=== PATIENT | female | born 1995 | race Two or more races ===

== ENCOUNTER 2016-11-01 16:09 | Emergency (ER) | payer OTHER ==
--- NOTE | 2016-11-01 17:30 | ED Physician Documentation ---
PD HPI URI - Stated complaint Stated Complaint: CHEST PX,COUGH,RASH, - Chief complaint Chief Complaint: General - History obtained from History obtained from: Patient - History of Present Illness Timing - onset: How many weeks ago (1-2) Timing duration: Weeks Timing details: Gradual onset, Still present (worse past few days with chest pain too) Associated symptoms: Fever, Chills, Productive cough, Chest pain, Dyspnea. No: Hemoptysis, NVD Contributing factors: No: Travel, COPD / asthma Improves by: Rest Worsened by: Breathing Similar symptoms before: Has not had sx before Recently seen: Not recently seen Review of Systems Constitutional: reports: Fever, Chills, Myalgias Nose: reports: Congestion Respiratory: reports: Dyspnea, Cough, Wheezing GI: denies: Vomiting, Diarrhea Skin: denies: Rash PD PAST MEDICAL HISTORY - Past Medical History Past Medical History: No Cardiovascular: None Respiratory: None - Present Medications Home Medications: Ambulatory Orders Medication Instructions Recorded Confirmed Albuterol Sulfate [Proair Hfa 2 puffs IH QID #1 hfa.aer.ad 11/01/16 Inhaler] Azithromycin [Zithromax] 250 mg PO DAILY #6 tablet 11/01/16 Dexamethasone [Decadron] 4 mg PO DAILY #5 tablet 11/01/16 Hydrocodone/Acetaminophen [Nash 1 each PO Q6H PRN #20 tablet 11/01/16 5-325 Tablet] - Allergies Allergies/Adverse Reactions: Allergies Allergy/AdvReac Type Severity Reaction Status Date / Time No Known Drug Allergies Allergy Verified 11/01/16 16:16 PD ED PE NORMAL - Vitals Vital signs reviewed: Yes - General General: Alert and oriented X 3, No acute distress, Well developed/nourished - HEENT HEENT: Ears normal, Pharynx benign - Neck Neck: Supple, no meningeal sign, No adenopathy - Cardiac Cardiac: RRR, No murmur - Respiratory Respiratory: No: Clear bilaterally (scattered wheezes) - Derm Derm: Normal color, Warm and dry - Extremities Extremities: No edema, No calf tenderness / cord Results - Vitals Vitals: Vital Signs - 24 hr 11/01/16 11/01/16 16:13 18:29 Temperature 36.6 C 37.4 C Heart Rate 97 80 Respiratory 14 16 Rate Blood Pressure 121/72 124/78 O2 Saturation 95 99 Oxygen O2 Source Room air - Rads (name of study) chest Radiology: Prelim report reviewed, EMP read contemporaneously (normal) PD MEDICAL DECISION MAKING - ED course Complexity details: considered differential (has been sick awhile and worse cough with sputum, consider bacterial transformation.), d/w patient Departure - Departure Disposition: 01 Home, Self Care Clinical Impression: Upper respiratory infection Qualifiers: URI type: unspecified URI Qualified Code(s): J06.9 - Acute upper respiratory infection, unspecified Chest pain Qualifiers: Chest pain type: chest pain on breathing Qualified Code(s): R07.1 - Chest pain on breathing Condition: Stable Record reviewed to determine appropriate education?: Yes Instructions: ED Chest Pain Pleurisy, ED Upper Resp Infec Abx Tx Follow-Up: DAHLIA YADAV [Primary Care Provider] - Prescriptions: Dexamethasone [Decadron] 4 mg PO DAILY #5 tablet Hydrocodone/Acetaminophen [Nash 5-325 Tablet] 1 each PO Q6H PRN #20 tablet PRN Reason: Pain Albuterol Sulfate [Proair Hfa Inhaler] 2 puffs IH QID #1 hfa.aer.ad Azithromycin [Zithromax] 250 mg PO DAILY #6 tablet Comments: Your chest xray looks okay, so no pneumonia, collapsed lung, etc. Sounds like bronchitis and some inflammation of the chestwall/lung surface. Zithromax and Decadron daily for 5 days. Use Albuterol inhaler 2 puffs 4 times daily for 7-10 days. Add hydrocodone as needed for pains. Recheck if not improved over the next 3-5 days. Forms: Activity restrictions Discharge Date/Time: 11/01/16 18:58
[2016-11-01] MEDS ORDERED: IBUPROFEN 600 MG TABLET PO ONE (17:51)
[2016-11-01] MEDS ORDERED: ACETAMINOPHEN 325 MG TABLET PO ONE (17:51)
[2016-11-01] MEDS: ACETAMINOPHEN 325 MG TABLET PO STA (18:02)
[2016-11-01] MEDS: IBUPROFEN 600 MG TABLET PO STA (18:03)
[2016-11-01 18:30] VITALS: BP 124/78
--- NOTE | 2016-11-01 18:30 | XRAY Preliminary Report ---
Exam: XR Chest 2 View PA/LAT IMPRESSION: 1. No consolidation. 2. No pneumothorax or effusion. [facility] SITE ID: [id number]
--- NOTE | 2016-11-01 19:11 | XRAY Report ---
EXAM: CHEST RADIOGRAPHY EXAM DATE: 11/01/2016 06:10 PM. CLINICAL HISTORY: Cough and left chest pain. COMPARISON: None. TECHNIQUE: 2 views. FINDINGS: Lungs/Pleura: No focal opacities evident. No pleural effusion. No pneumothorax. Normal volumes. Mediastinum: Heart and mediastinal contours are unremarkable. Other: None. IMPRESSION: 1. No consolidation. 2. No pneumothorax or effusion. [facility] Referring Provider Line: [phone] SITE ID: [id number]
== END 2016-11-01 18:58 | disposition home or self-care (01) ==
LOC: ED 16:09
DX: J06.9 Acute upper respiratory infection, unspecified (principal); R07.9 Chest pain, unspecified
CPT/HCPCS: 71020; 99282; 99283

== ENCOUNTER 2016-12-14 19:06 | Emergency (ER) | payer OTHER ==
--- NOTE | 2016-12-14 19:47 | ED Physician Documentation ---
History of Present Illness - Stated complaint Stated Complaint: DIZZINESS,FATIGUE - Chief complaint Chief Complaint: General - History obtained from History obtained from: Patient - History of Present Illness Timing: Other (21-year-old who for the last many months has had postprandial bloating and sometimes vomiting associated with fatigue despite good sleep. 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 She denies weight loss, changes in bowel movements, possibility of (she is on Depo-Provera).) Review of Systems Constitutional: reports: Fatigue. denies: Fever, Chills, Myalgias, Weight Loss , Sweats Eyes: denies: Loss of vision, Decreased vision Nose: denies: Rhinorrhea / runny nose, Congestion Cardiac: denies: Chest pain / pressure, Palpitations Respiratory: denies: Dyspnea, Cough PD PAST MEDICAL HISTORY - Past Medical History Past Medical History: No Cardiovascular: None Respiratory: None - Past Surgical History Past Surgical History: No - Present Medications Home Medications: Ambulatory Orders Medication Instructions Recorded Confirmed Omeprazole [PriLOSEC] 20 mg PO DAILY #14 capsule 12/14/16 - Allergies Allergies/Adverse Reactions: Allergies Allergy/AdvReac Type Severity Reaction Status Date / Time No Known Drug Allergies Allergy Verified 12/14/16 19:16 - Social History Does the pt smoke?: Yes Smoking Status: Current some day smoker Does the pt drink ETOH?: No Does the pt have substance abuse?: No - Immunizations Immunizations are current?: Yes - POLST Patient has POLST: No PD ED PE NORMAL - Vitals Vital signs reviewed: Yes - General General: Alert and oriented X 3, No acute distress - HEENT HEENT: PERRL, EOMI - Neck Neck: Supple, no meningeal sign, No bony TTP - Cardiac Cardiac: RRR, No murmur - Respiratory Respiratory: No respiratory distress, Clear bilaterally - Abdomen Abdomen: Normal bowel sounds, Soft, Non tender - Back Back: No CVA TTP, No spinal TTP - Extremities Extremities: No edema, No calf tenderness / cord - Neuro Neuro: Alert and oriented X 3, Normal speech - Psych Psych: Normal mood, Normal affect Results - Vitals Vitals: Vital Signs - 24 hr 12/14/16 19:10 Temperature 36.4 C L Heart Rate 92 Respiratory 16 Rate Blood Pressure 142/81 H O2 Saturation 98 Oxygen O2 Source Room air - Labs Labs: Laboratory Tests 12/14/16 12/14/16 12/14/16 19:56 19:56 19:56 WBC 6.5 RBC 4.36 Hgb 14.1 Hct 42.7 MCV 97.9 MCH 32.3 H MCHC 33.0 RDW 13.5 Plt Count 241 MPV 9.3 Neut # 3.6 Lymph # 2.3 Hendricks # 0.5 Eos # 0.0 Baso # 0.0 Absolute Nucleated RBC 0.00 Nucleated RBCs 0.0 Sodium 138 Potassium 4.1 Chloride 103 Carbon Dioxide 27 Anion Gap 8.0 BUN 11 Creatinine 0.6 Estimated GFR (MDRD) 126 Glucose 102 H Calcium 9.5 Total Bilirubin 0.4 AST 43 H ALT 29 Alkaline Phosphatase 82 Total Protein 8.2 Albumin 4.5 Globulin 3.7 Albumin/Globulin Ratio 1.2 Lipase 32 Urine Color Urine Clarity Urine pH Ur Specific [place] Urine Protein Urine Glucose (UA) Urine Ketones Urine Occult Blood Urine Nitrite Urine Bilirubin Urine Urobilinogen Ur Leukocyte Esterase Urine RBC Urine WBC Ur Squamous Epith Cells Urine Bacteria Urine Mucus Ur Microscopic Review Urine Culture Comments Urine HCG, Qual H. pylori IgG Antibody Negative 12/14/16 12/14/16 20:31 20:31 WBC RBC Hgb Hct MCV MCH MCHC RDW Plt Count MPV Neut # Lymph # Hendricks # Eos # Baso # Absolute Nucleated RBC Nucleated RBCs Sodium Potassium Chloride Carbon Dioxide Anion Gap BUN Creatinine Estimated GFR (MDRD) Glucose Calcium Total Bilirubin AST ALT Alkaline Phosphatase Total Protein Albumin Globulin Albumin/Globulin Ratio Lipase Urine Color YELLOW Urine Clarity CLEAR Urine pH 6.5 Ur Specific [place] 1.015 1.015 Urine Protein NEGATIVE Urine Glucose (UA) NEGATIVE Urine Ketones NEGATIVE Urine Occult Blood NEGATIVE Urine Nitrite NEGATIVE Urine Bilirubin NEGATIVE Urine Urobilinogen 0.2 (NORMAL) Ur Leukocyte Esterase SMALL H Urine RBC 0-5 Urine WBC 4-5 Ur Squamous Epith Cells FEW Squamous Urine Bacteria Few Urine Mucus Few Strands Ur Microscopic Review INDICATED Urine Culture Comments INDICATED Urine HCG, Qual NEGATIVE H. pylori IgG Antibody PD MEDICAL DECISION MAKING - ED course ED course: She presents with long-standing fatigue and abdominal bloating after eating. She has a normal examination, she is not losing weight. We will trial of PPI, she is to follow up with her physician. Departure - Departure Disposition: 01 Home, Self Care Clinical Impression: Postprandial abdominal bloating Fatigue Qualifiers: Fatigue type: unspecified Qualified Code(s): R53.83 - Other fatigue Condition: Good Record reviewed to determine appropriate education?: Yes Instructions: ED Abdominal Pain Unkn Cause Prescriptions: Omeprazole [PriLOSEC] 20 mg PO DAILY #14 capsule Comments: Call your doctor to arrange a follow up appointment. Make the next available appointment. In the interim return anytime if worse or if new symptoms develop. Your blood pressure was elevated today on check in to the emergency department. This does not mean that you have hypertension, it is a common phenomenon to check into the emergency department and have elevated blood pressure. I recommend that you see your primary care physician within the week to have it rechecked when you're feeling better.
[2016-12-14 20:35] LABS: BASOPHILS % (AUTO) 0.7 %; EOSINOPHILS % (AUTO) 0.7 %; HCT - HEMATOCRIT 42.7 % (37.0-47.0); HGB - HEMOGLOBIN 14.1 g/dL (12.0-16.0); LYMPHOCYTES # (AUTO) 2.3 10^3/uL (1.5-3.5); LYMPHOCYTES % (AUTO) 35.3 %; MEAN CORPUSCULAR HEMOGLOBIN 32.3 pg (27.0-31.0); MEAN CORPUSCULAR VOLUME 97.9 fL (81.0-99.0); MEAN PLATELET VOLUME 9.3 fL (7.9-10.8); MONOCYTES # (AUTO) 0.5 10^3/uL (0.0-1.0); MONOCYTES % (AUTO) 7.1 %; NEUTROPHILS # (AUTO) 3.6 10^3/uL (1.5-6.6); NEUTROPHILS % (AUTO) 56.2 %; RED BLOOD COUNT 4.36 10^6/uL (4.20-5.40); RED CELL DISTRIBUTION WIDTH 13.5 % (12.0-15.0); UNCORRECTED WHITE BLOOD COUNT 6.5 x10^3/uL; WHITE BLOOD COUNT 6.5 x10^3/uL (4.8-10.8)
[2016-12-14 20:48] LABS: ALBUMIN/GLOBULIN RATIO 1.2 (1.0-2.2); BILIRUBIN,TOTAL 0.4 mg/dL (0.2-1.0); CALCIUM 9.5 mg/dL (8.5-10.3); CREATININE 0.6 mg/dL (0.4-1.0); POTASSIUM 4.1 mmol/L (3.5-5.0); TOTAL PROTEIN 8.2 g/dL (6.7-8.2)
[2016-12-14 20:51] LABS: BILIRUBIN,URINE NEGATIVE (NEGATIVE); PH,URINE 6.5 PH (5.0-7.5)
[2016-12-14 20:59] LABS: UA w/ MICROSCOPIC CHARGE YES
[2016-12-14 21:00] LABS: HCG UR QUAL NEGATIVE; UR CULTURE IF IND INDICATED
[2016-12-14 21:17] LABS: H. PYLORI IGG ANTIBODY Negative (Negative); HPYLORI NEG QC Negative (Negative); HPYLORI POS QC POSITIVE (Positive)
[2016-12-14 21:26] VITALS: BP 120/76
== END 2016-12-14 21:35 | disposition home or self-care (01) ==
LOC: ED 19:06
DX: R14.0 Abdominal distension (gaseous) (principal); R53.83 Other fatigue; R03.0 Elevated blood-pressure reading, without diagnosis of hypertension; F17.200 Nicotine dependence, unspecified, uncomplicated
CPT/HCPCS: 80053; 81001; 81003; 81025; 83690; 85025; 87077; 87086; 87339; 99283

== ENCOUNTER 2017-01-08 12:28 | Emergency (ER) | payer OTHER ==
[2017-01-08 12:36] VITALS: BP 138/78
--- NOTE | 2017-01-08 12:46 | ED Physician Documentation ---
PD HPI SKIN - Stated complaint Stated Complaint: BUMPS - Chief complaint Chief Complaint: Wound - History obtained from History obtained from: Patient - History of Present Illness Timing - onset: Other (For the last 5 months this 21-year-old woman who is sexually active with a single partner has had non-painful nonmigratory lumps in her groin. She saw her physician, she says STD testing was done and negative. Some of them were treated with liquid nitrogen without success. She is here today hoping for potentially a skin biopsy, there is no acute complaint.) Review of Systems Constitutional: denies: Fever, Chills GI: denies: Abdominal Pain, Vomiting, Diarrhea : denies: Now EGA PD PAST MEDICAL HISTORY - Past Medical History Past Medical History: Yes Cardiovascular: None Respiratory: None Neuro: Headache/migraine - Past Surgical History Past Surgical History: Yes - Present Medications Home Medications: Ambulatory Orders Medication Instructions Recorded Confirmed Omeprazole [PriLOSEC] 20 mg PO DAILY #14 capsule 12/14/16 - Allergies Allergies/Adverse Reactions: Allergies Allergy/AdvReac Type Severity Reaction Status Date / Time No Known Drug Allergies Allergy Verified 12/14/16 19:16 - Social History Does the pt smoke?: Yes Smoking Status: Current some day smoker Does the pt drink ETOH?: Yes Does the pt have substance abuse?: No - Immunizations Immunizations are current?: Yes - POLST Patient has POLST: No PD ED PE NORMAL - Vitals Vital signs reviewed: Yes - General General: Alert and oriented X 3, No acute distress - Abdomen Abdomen: Soft, Non tender - Female Female : Other (Some lesions on the skin c/w molluscum) - Neuro Neuro: Alert and oriented X 3, Normal speech - Psych Psych: Normal mood, Normal affect Results - Vitals Vitals: Vital Signs - 24 hr 01/08/17 12:35 Temperature 37.2 C Heart Rate 92 Respiratory 18 Rate Blood Pressure 138/78 H O2 Saturation 98 Oxygen O2 Source Room air PD MEDICAL DECISION MAKING - ED course ED course: Lesions are very consistent with molluscum contagiosum with a central core that is expressible. The benign nature of this diagnosis was discussed with her. She requested herpes testing, discussed that she would need to follow up with her physician for results as they are not quick to results. Departure - Departure Disposition: 01 Home, Self Care Clinical Impression: Molluscum contagiosum Condition: Good Record reviewed to determine appropriate education?: Yes Instructions: ED Molluscum Contagiosum Comments: Followup with your physician in about a week to get results of herpes testing, Your blood pressure was elevated today on check in to the emergency department. This does not mean that you have hypertension, it is a common phenomenon to check into the emergency department and have elevated blood pressure. I recommend that you see your primary care physician within the week to have it rechecked when you're feeling better.
[2017-01-12 16:08] LABS: HSV 1/2 IGM CONFIRMATORY IFA NEGATIVE (()); HSV 1/2 IGM INDEX 1.25 INDEX (()); HSV 2 IGG INDEX <0.90 INDEX (())
== END 2017-01-08 13:28 | disposition home or self-care (01) ==
LOC: ED 12:28
DX: B08.1 Molluscum contagiosum (principal); R03.0 Elevated blood-pressure reading, without diagnosis of hypertension; F17.200 Nicotine dependence, unspecified, uncomplicated
CPT/HCPCS: 86694; 86695; 86696; 99283

== ENCOUNTER 2018-01-04 21:36 | Emergency (ER) | payer OTHER ==
--- NOTE | 2018-01-04 21:48 | ED Physician Documentation ---
PD HPI HEADACHE - Stated complaint Stated Complaint: LIGHTHEADED - Chief complaint Chief Complaint: General - History obtained from History obtained from: Patient, Family - History of Present Illness Timing - onset: Today Timing - details: Gradual onset, Still present Associated symptoms: No: Nausea, Vomiting, Syncope Contributing factors: Possible carbon monoxide Similar symptoms before: Has not had sx before Recently seen: Not recently seen - Additional information Additional information: Patient is a 22 year old female with no significant past medical history who is presenting to the emergency department for headache and lightheadedness. According to patient and family it started today. Patient stated that the CO monitor was reading red (vs. green). Patient had been exposed for about 4 hours. Patient's had been in the house for 5 hours and was asymptomatic. Review of Systems Constitutional: denies: Fever, Chills Eyes: denies: Loss of vision, Decreased vision, Photophobia Cardiac: denies: Chest pain / pressure Respiratory: denies: Dyspnea GI: denies: Nausea, Vomiting : denies: Dysuria, Frequency Skin: denies: Rash, Lesions Musculoskeletal: denies: Neck pain Neurologic: reports: Headache. denies: Generalized weakness, Focal weakness, Numbness, Syncope, Seizure, Altered mental status, LOC Immunocompromised: denies: Immunocompromised PD PAST MEDICAL HISTORY - Past Medical History Cardiovascular: None Respiratory: None - Past Surgical History Past Surgical History: Yes - Present Medications Home Medications: Ambulatory Orders Medication Instructions Recorded Confirmed Norethindrone-Ethinyl Estrad 1 tab PO DAILY 01/04/18 01/04/18 [Cyclafem 1-35-28 Tablet] Sulfamethox/Trimeth 800/160 1 each PO BID #14 tablet 01/04/18 [Bactrim Ds 800/160] - Allergies Allergies/Adverse Reactions: Allergies Allergy/AdvReac Type Severity Reaction Status Date / Time No Known Drug Allergies Allergy Verified 01/04/18 21:43 - Social History Does the pt smoke?: Yes Smoking Status: Current some day smoker Does the pt drink ETOH?: Yes Does the pt have substance abuse?: No - Immunizations Immunizations are current?: Yes - POLST Patient has POLST: No PD ED PE NORMAL - Vitals Vital signs reviewed: Yes - General General: Alert and oriented X 3, No acute distress, Well developed/nourished - HEENT HEENT: Atraumatic, PERRL - Neck Neck: Supple, no meningeal sign - Cardiac Cardiac: RRR - Respiratory Respiratory: No respiratory distress - Abdomen Abdomen: Non distended - Derm Derm: Normal color, Warm and dry - Extremities Extremities: No deformity - Neuro Neuro: Alert and oriented X 3, No motor deficit, Normal speech Eye Opening: Spontaneous Motor: Obeys Commands Verbal: Oriented GCS Score: 15 - Psych Psych: Normal mood Results - Vitals Vitals: Vital Signs - 24 hr 01/04/18 21:39 Temperature 36.4 C L Heart Rate 84 Respiratory 18 Rate Blood Pressure 122/71 O2 Saturation 100 Oxygen O2 Source Room air Oxygen Flow Rate 2 - Labs Labs: Laboratory Tests 01/04/18 21:50 Urine Color YELLOW Urine Clarity HAZY Urine pH 6.0 Ur Specific [place] 1.020 Urine Protein NEGATIVE Urine Glucose (UA) NEGATIVE Urine Ketones 15 H Urine Occult Blood NEGATIVE Urine Nitrite NEGATIVE Urine Bilirubin NEGATIVE Urine Urobilinogen 0.2 (NORMAL) Ur Leukocyte Esterase SMALL H Urine RBC 11-25 H Urine WBC 11-25 H Ur Squamous Epith Cells FEW Squamous Urine Bacteria Few Ur Microscopic Review INDICATED Urine Culture Comments INDICATED Urine HCG, Qual NEGATIVE PD MEDICAL DECISION MAKING - ED course Complexity details: reviewed old records, reviewed results, re-evaluated patient , considered differential, d/w patient, d/w family ED course: Patient was seen and examined at bedside. patient's urine was collected and patient was placed on supplemental oxygen. Patient's urine was consistent with a urinary tract infection and dehydration. patient stated that she was scared of needles and did not want a blood draw. Further discussion with the family revealed that the CO monitor had been green most of the time and had only flickered red a few times. Patient's who had been in the house longer than the patient had no symptoms. Patient was not . CO poisoning was unlikely and patient was stable for discharge with outpatient follow up. Departure - Departure Disposition: 01 Home, Self Care Clinical Impression: Urinary tract infection, Dehydration Condition: Good Instructions: ED UTI Cystitis Female, ED Dehydration Follow-Up: CHI LOPEZ III, MD [Primary Care Provider] - Prescriptions: Sulfamethox/Trimeth 800/160 [Bactrim Ds 800/160] 1 each PO BID #14 tablet Comments: Your symptoms today are being caused by a urinary tract infection and dehydration. It is important that you increase your fluid intake (mainly water ) to 80oz a day for the next few days. You should follow up with your doctor if your symptoms persist. you may return to the emergency department at any time for new, worsening or uncontrollable symptoms.
[2018-01-04 22:04] LABS: BILIRUBIN,URINE NEGATIVE (NEGATIVE); GLUCOSE, URINE (UA) NEGATIVE (NEGATIVE); KETONES,URINE (UA) 15 mg/dL (NEGATIVE); LEUKOCYTE ESTERASE, URINE SMALL (NEGATIVE); NITRITE,URINE NEGATIVE (NEGATIVE); OCCULT BLOOD,URINE NEGATIVE (NEGATIVE); PROTEIN,URINE NEGATIVE (NEGATIVE); UROBILINOGEN,URINE 0.2 (NORMAL) E.U./dL (NORMAL)
[2018-01-04 22:13] LABS: CLARITY,URINE HAZY (CLEAR)
[2018-01-04 22:14] LABS: BACTERIA,URINE Few /HPF (None Seen); HCG UR QUAL NEGATIVE; SQUAMOUS EPITHELIAL CELL,UR FEW Squamous (<= Few)
[2018-01-04] MEDS ORDERED: SULFAMETH/TRIMETH DS 800/160 MG TABLET PO STA (22:22)
[2018-01-04 22:31] VITALS: BP 112/74
== END 2018-01-04 22:31 | disposition home or self-care (01) ==
LOC: ED 21:36
DX: E86.0 Dehydration (principal); N39.0 Urinary tract infection, site not specified; F17.200 Nicotine dependence, unspecified, uncomplicated
CPT/HCPCS: 81001; 81025; 87086; 99283; 99284; A9270; 81003; 82375; 87077; 87181

== ENCOUNTER 2018-05-31 14:56 | Outpatient (CLI) | payer OTHER ==
--- NOTE | 2018-06-01 12:54 | MRI Report ---
Reason: PAIN IN RIGHT SHOULDER Procedure Date: 05/31/2018 Accession Number: [id number] / [id number] Procedure: MRI - Shoulder RT W/O CPT Code: FULL RESULT: EXAM: RIGHT SHOULDER MRI WITHOUT CONTRAST EXAM DATE: 05/31/2018 03:43 PM. CLINICAL HISTORY: PAIN IN RIGHT SHOULDER. COMPARISON: None. TECHNIQUE: Multiplanar, multisequence T1-weighted and fluid-sensitive sequences of the shoulder without contrast. Other: None. FINDINGS: Acromioclavicular Region: The acromion is type II. The acromioclavicular joint is unremarkable. The coracoacromial and coracoclavicular ligaments are intact. No subacromial/subdeltoid bursal fluid. Glenohumeral Region: No subluxation. No effusion or loose bodies. The articular cartilage is unremarkable. The glenohumeral ligaments and joint capsule are unremarkable. Bone Marrow: No fracture, marrow edema or bone lesions. Labrum: The labrum is unremarkable on this nonarthrographic study. Musculature/Rotator Cuff: Mild supraspinatus tendinosis. No tear. The infraspinatus, teres minor, and subscapularis tendons are normal. No edema or fatty atrophy. Biceps Tendon: The long head of the biceps tendon and biceps melquiades are intact. Other: The subcutaneous tissues are unremarkable. IMPRESSION: 1. Mild supraspinatus tendinosis without tear. 2. Normal labrum. 3. Normal biceps tendon. [facility] MUSCULOSKELETAL RADIOLOGY SECTION
== END 2018-05-31 14:57 | disposition home or self-care (01) ==
LOC: DI 14:56
PROVIDERS: ATTEND General Practice
DX: M67.911 Unspecified disorder of synovium and tendon, right shoulder (principal)

== ENCOUNTER 2018-07-27 20:30 | Emergency (ER) | payer OTHER ==
[2018-07-27 20:58] LABS: BILIRUBIN,URINE NEGATIVE (NEGATIVE); GLUCOSE, URINE (UA) NEGATIVE (NEGATIVE); KETONES,URINE (UA) NEGATIVE (NEGATIVE); LEUKOCYTE ESTERASE, URINE SMALL (NEGATIVE); NITRITE,URINE POSITIVE (NEGATIVE); OCCULT BLOOD,URINE TRACE-LYSE (NEGATIVE); PH,URINE 6.5 PH (5.0-7.5); PROTEIN,URINE NEGATIVE (NEGATIVE); UROBILINOGEN,URINE 0.2 (NORMAL) E.U./dL (NORMAL)
[2018-07-27 21:02] LABS: CLARITY,URINE CLOUDY (CLEAR); HCG UR QUAL NEGATIVE
[2018-07-27 21:11] LABS: BACTERIA,URINE Moderate /HPF (None Seen); RBC,URINE 0-5 /HPF (0-5); SQUAMOUS EPITHELIAL CELL,UR FEW Squamous (<= Few)
--- NOTE | 2018-07-27 21:23 | ED Physician Documentation ---
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 She relates that she ate some food on that she thought might be undercooked and she thinks that she may have some cramping associated with that. She also knows that she drank quite heavily and she has some abdominal pain related to that. She relates 2 separate pains. She denies any urinary symptoms at all and denies any back pain or fever. Review of Systems Constitutional: denies: Fever, Chills, Myalgias, Fatigue Eyes: denies: Decreased vision Ears: denies: Ear pain Nose: denies: Rhinorrhea / runny nose, Congestion Throat: denies: Sore throat Cardiac: denies: Chest pain / pressure, Palpitations Respiratory: denies: Dyspnea, Cough GI: reports: Abdominal Pain, Nausea. denies: Vomiting, Constipation, Diarrhea : denies: Dysuria, Frequency Skin: denies: Rash Musculoskeletal: denies: Neck pain, Back pain, Extremity pain Neurologic: denies: Generalized weakness, Focal weakness, Numbness PD PAST MEDICAL HISTORY - Past Medical History Cardiovascular: None Respiratory: None - Past Surgical History Past Surgical History: Yes - Present Medications Home Medications: Ambulatory Orders Medication Instructions Recorded Confirmed Norethindrone-Ethinyl Estrad 1 tab PO DAILY 01/04/18 01/04/18 [Cyclafem 1-35-28 Tablet] Sulfamethoxazole/Trimethoprim 1 each PO BID #10 tablet 07/27/18 [Sulfamethoxazole-Tmp Ds Tablet] - Allergies Allergies/Adverse Reactions: Allergies Allergy/AdvReac Type Severity Reaction Status Date / Time No Known Drug Allergies Allergy Verified 07/27/18 20:40 - Social History Does the pt smoke?: Yes Smoking Status: Current some day smoker Does the pt drink ETOH?: Yes Does the pt have substance abuse?: No - Immunizations Immunizations are current?: Yes - POLST Patient has POLST: No PD ED PE NORMAL - Vitals Vital signs reviewed: Yes (normal ) - General General: Alert and oriented X 3, No acute distress, Well developed/nourished, Other (appears quite well ) - HEENT HEENT: Atraumatic, PERRL, EOMI - Neck Neck: Supple, no meningeal sign, No bony TTP - Cardiac Cardiac: RRR, No murmur - Respiratory Respiratory: No respiratory distress, Clear bilaterally - Abdomen Abdomen: Soft, Other (mild left upper quadrant tenderness without garding or rebound and suprpubic tenderness mild ) - Back Back: No CVA TTP, No spinal TTP - Derm Derm: Normal color, Warm and dry, No rash - Extremities Extremities: No deformity, No edema - Neuro Neuro: Alert and oriented X 3, 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, No motor deficit, No sensory deficit, Normal speech Eye Opening: Spontaneous Motor: Obeys Commands Verbal: Oriented GCS Score: 15 - Psych Psych: Normal mood, Normal affect Results - Vitals Vitals: Vital Signs - 24 hr 07/27/18 20:39 Temperature 36.7 C Heart Rate 77 Respiratory 14 Rate Blood Pressure 117/80 O2 Saturation 100 Oxygen O2 Source Room air - Labs Labs: Laboratory Tests 07/27/18 20:47 Urine Color YELLOW Urine Clarity CLOUDY Urine pH 6.5 Ur Specific [place] 1.015 Urine Protein NEGATIVE Urine Glucose (UA) NEGATIVE Urine Ketones NEGATIVE Urine Occult Blood TRACE-LYSE Urine Nitrite POSITIVE H Urine Bilirubin NEGATIVE Urine Urobilinogen 0.2 (NORMAL) Ur Leukocyte Esterase SMALL H Urine RBC 0-5 Urine WBC >25 H Ur Squamous Epith Cells FEW Squamous Urine Bacteria Moderate H Ur Microscopic Review INDICATED Urine Culture Comments INDICATED Urine HCG, Qual NEGATIVE PD MEDICAL DECISION MAKING - ED course Complexity details: reviewed results, re-evaluated patient, considered differential, d/w patient ED course: 23-year-old previously well female with symptoms of gastritis likely related to alcohol intake appears well on physical exam. She has obvious urinary tract infection on examination of the urine and she does not have much in the way of symptoms other than some lower abdominal cramping. I suspect she has 2 processes simultaneously and the patient confirms this is likely. She is administered Mylanta 30 mg orally and instructed to obtain some medication for gastritis [id number]. She is also given sulfamethoxazole trimethoprim for the urinary tract infection. Departure - Departure Disposition: 01 Home, Self Care Clinical Impression: Urinary tract infection Qualifiers: Urinary tract infection type: acute cystitis Hematuria presence: without hematuria Qualified Code(s): N30.00 - Acute cystitis without hematuria Gastritis Qualifiers: Gastritis type: unspecified gastritis Chronicity: acute Gastritis bleeding: without bleeding Qualified Code(s): K29.00 - Acute gastritis without bleeding Instructions: ED Gastritis, ED UTI Cystitis Female Follow-Up: CHI LOPEZ III, MD [Primary Care Provider] - Prescriptions: Sulfamethoxazole/Trimethoprim [Sulfamethoxazole-Tmp Ds Tablet] 1 each PO BID #10 tablet Comments: Today it seems to have 2 separate problems causing you some distress in your abdomen. My recommendation is to obtain some medication [id number] for reduction of acid in your stomach for 3-7 days. In addition drink extra fluids and take the antibiotic to resolve the urinary tract infection. Forms: Activity restrictions
[2018-07-27] MEDS ORDERED: MAG HYDROX/AL HYDROX/SIMETH 30 ML UDC PO STA (21:39)
[2018-07-27] MEDS ORDERED: SULFAM/TRIM 800/160 Prepack 2 PO ONE (21:39)
[2018-07-27 22:03] VITALS: BP 125/84
== END 2018-07-27 22:05 | disposition home or self-care (01) ==
LOC: ED 20:30
DX: N30.00 Acute cystitis without hematuria (principal); K29.00 Acute gastritis without bleeding; F17.200 Nicotine dependence, unspecified, uncomplicated
CPT/HCPCS: 81001; 81025; 87086; 87181; 99283; A9270; 80053; 81003; 83690; 85025

== ENCOUNTER 2019-02-12 20:27 | Emergency (ER) | payer OTHER ==
--- NOTE | 2019-02-12 20:37 | ED Physician Documentation ---
PD HPI ABD PAIN - Stated complaint Stated Complaint: ABD PAIN N/V - Chief complaint Chief Complaint: Abd Pain - History obtained from History obtained from: Patient - History of Present Illness Timing - onset: Other (November 27, 2018) Timing - details: Still present, Waxing and waning Pain level now: 7 Quality: Pain Location: Other (across lower abdomen) Radiation: Other (does not radiate) Improved by: Other (nothing) Worsened by: Other (no apparent exacerbating factors) Associated symptoms: Nausea, Vomiting. No: Fever, Diarrhea, Constipation Similar symptoms before: Other (see below; possible endometriosis) - Additional information Additional information: patient says she has had symptoms since November 27: abdominal pain, nausea, vomiting, dizzy/lightheaded. Per patient, "I've already been seen by marketing consultant and other doctors for this"; she indicates one of the marketing consultant she saw suspected endometriosis "but they didn't do any tests for it". 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 Joseluis, a friend advised her to go to the emergency department for evaluation for these ongoing symptoms. She says she has been on various medications for these symptoms, but cannot recall specific medications except doxycycline and ibuprofen; she also remarks that "tylenol doesn't work on this pain". Review of Systems Constitutional: denies: Fever, Chills, Sweats Cardiac: reports: Reviewed and negative Respiratory: reports: Reviewed and negative GI: reports: Abdominal Pain, Nausea, Vomiting. 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 : None HEENT: None Psych: None Musculoskeletal: Other Derm: None - Past Surgical History Past Surgical History: Yes - Present Medications Home Medications: Ambulatory Orders Medication Instructions Recorded Confirmed No Known Home Medications 02/12/19 02/12/19 - Allergies Allergies/Adverse Reactions: Allergies Allergy/AdvReac Type Severity Reaction Status Date / Time No Known Drug Allergies Allergy Verified 02/12/19 20:34 - Social History Does the pt smoke?: Yes Smoking Status: Current some day smoker Does the pt drink ETOH?: Yes Does the pt have substance abuse?: No - Immunizations Immunizations are current?: Yes - POLST Patient has POLST: No PD ED PE NORMAL - Vitals Vital signs reviewed: Yes - General General: Alert and oriented X 3, No acute distress, Well developed/nourished - HEENT HEENT: PERRL, EOMI, Moist mucous membranes - Neck Neck: Supple, no meningeal sign - Cardiac Cardiac: RRR, No murmur - Respiratory Respiratory: No respiratory distress, Clear bilaterally - Abdomen Abdomen: Soft, Other (mild tenderness across lower abdomen without rebound or guarding) - Back Back: No CVA TTP - Derm Derm: Normal color, Warm and dry Results - Vitals Vitals: Vital Signs - 24 hr 02/12/19 02/12/19 20:29 22:39 Temperature 36.1 C L Heart Rate 89 83 Respiratory 16 16 Rate Blood Pressure 144/81 H 112/77 O2 Saturation 100 99 Oxygen O2 Source Room air - Labs Labs: Laboratory Tests 02/12/19 02/12/19 02/12/19 20:45 20:49 20:49 WBC 8.8 RBC 4.00 L Hgb 12.7 Hct 39.2 MCV 98.0 MCH 31.8 H MCHC 32.4 RDW 12.7 Plt Count 285 MPV 9.8 Neut # (Auto) 4.8 Lymph # (Auto) 3.0 [place] # (Auto) 0.8 Eos # (Auto) 0.1 Baso # (Auto) 0.1 Absolute Nucleated RBC 0.00 Nucleated RBC % 0.0 Sodium 138 Potassium 3.6 Chloride 101 Carbon Dioxide 25 Anion Gap 12.0 BUN 12 Creatinine 0.6 Estimated GFR (MDRD) 124 Glucose 74 Calcium 9.1 Total Bilirubin 0.5 AST 20 ALT 18 Alkaline Phosphatase 77 Total Protein 7.6 Albumin 3.9 Globulin 3.7 Albumin/Globulin Ratio 1.1 Lipase 42 Urine Color YELLOW Urine Clarity CLEAR Urine pH 6.0 Ur Specific [place] 1.020 Urine Protein NEGATIVE Urine Glucose (UA) NEGATIVE Urine Ketones NEGATIVE Urine Occult Blood NEGATIVE Urine Nitrite NEGATIVE Urine Bilirubin NEGATIVE Urine Urobilinogen 0.2 (NORMAL) Ur Leukocyte Esterase TRACE H Urine RBC None Seen Urine WBC 4-5 Ur Squamous Epith Cells MANY Squamous H Urine Bacteria Few Ur Microscopic Review INDICATED Urine Culture Comments NOT INDICATED Urine HCG, Qual NEGATIVE - Rads (name of study) CT a/p Radiology: Prelim report reviewed, See rad report PD MEDICAL DECISION MAKING - ED course Complexity details: reviewed results, re-evaluated patient, considered differential, d/w patient ED course: Patient tells me [place] already scheduled for tomorrow. Prior to discharge, after I reviewed results of her tests with patient, she requests stronger pain medication. She says the toradol did not help. I recommended Ultram, and she says she has had Ultram in the past without adequate pain relief. Given 2 tablets Vicodin in ED and discharged. Departure - Departure Disposition: Home, Self Care Clinical Impression: Abdominal pain Condition: Good Health Concerns: abdominal pain Plan of Treatment: follow up with PCP Care Goals: resolution of symptoms, diagnosis if possible Assessment: see diagnosis Instructions: ED Abdominal Pain Unkn Cause, ED Pelvic Pain UKO Follow-Up: RANJITH PORTILLO MD [Primary Care Provider] - Within 1 week Discharge Date/Time: 02/12/19 23:42
[2019-02-12 20:55] LABS: BASOPHILS # (AUTO) 0.1 10^3/uL (0.0-0.1); BASOPHILS % (AUTO) 0.7 %; EOSINOPHILS # (AUTO) 0.1 10^3/uL (0.0-0.7); HGB - HEMOGLOBIN 12.7 g/dL (12.0-16.0); LYMPHOCYTES % (AUTO) 34.3 %; MEAN CORPUSCULAR HEMOGLOBIN 31.8 pg (27.0-31.0); MEAN CORPUSCULAR HGB CONC 32.4 g/dL (32.0-36.0); MEAN PLATELET VOLUME 9.8 fL (7.9-10.8); MONOCYTES # (AUTO) 0.8 10^3/uL (0.0-1.0); MONOCYTES % (AUTO) 8.9 %; NEUTROPHILS # (AUTO) 4.8 10^3/uL (1.5-6.6); PLT - PLATELET COUNT 285 10^3/uL (130-450); RED CELL DISTRIBUTION WIDTH 12.7 % (12.0-15.0); WHITE BLOOD COUNT 8.8 x10^3/uL (4.8-10.8)
[2019-02-12] MEDS ORDERED: KETOROLAC 30 MG/ML VIAL IVP STA (20:56)
[2019-02-12] MEDS ORDERED: ONDANSETRON 4 MG/2 ML VIAL IVP STA (20:56)
[2019-02-12 21:01] LABS: BILIRUBIN,URINE NEGATIVE (NEGATIVE); GLUCOSE, URINE (UA) NEGATIVE (NEGATIVE); KETONES,URINE (UA) NEGATIVE (NEGATIVE); LEUKOCYTE ESTERASE, URINE TRACE (NEGATIVE); NITRITE,URINE NEGATIVE (NEGATIVE); OCCULT BLOOD,URINE NEGATIVE (NEGATIVE); PROTEIN,URINE NEGATIVE (NEGATIVE); UROBILINOGEN,URINE 0.2 (NORMAL) E.U./dL (NORMAL)
[2019-02-12 21:03] LABS: CLARITY,URINE CLEAR (CLEAR); HCG UR QUAL NEGATIVE
[2019-02-12 21:09] LABS: ALBUMIN 3.9 g/dL (3.2-5.5); ALBUMIN/GLOBULIN RATIO 1.1 (1.0-2.2); BILIRUBIN,TOTAL 0.5 mg/dL (0.2-1.0); CALCIUM 9.1 mg/dL (8.5-10.3); CREATININE 0.6 mg/dL (0.4-1.0); TOTAL PROTEIN 7.6 g/dL (6.7-8.2)
[2019-02-12 21:13] LABS: BACTERIA,URINE Few /HPF (None Seen); RBC,URINE None Seen /HPF (0-5); SQUAMOUS EPITHELIAL CELL,UR MANY Squamous (<= Few)
[2019-02-12] MEDS ORDERED: KETOROLAC 60 MG/2 ML VIAL IM STA (21:15)
[2019-02-12] MEDS ORDERED: ONDANSETRON ODT 4 MG TABLET TL STA (21:15)
--- NOTE | 2019-02-12 22:32 | CT Report ---
Reason: lower abdominal pain Procedure Date: 02/12/2019 Accession Number: [id number] / [id number] Procedure: CT - Abdomen/Pelvis WO CPT Code: FULL RESULT: EXAM: CT ABDOMEN AND PELVIS (CT KUB) EXAM DATE: 02/12/2019 09:47 PM. CLINICAL HISTORY: Lower abdominal pain. COMPARISONS: None. TECHNIQUE: Routine axial helical CT imaging was performed through the abdomen and pelvis without IV contrast. Reconstructions: Coronal and sagittal. In accordance with CT protocol optimization, one or more of the following dose reduction techniques were utilized for this exam: automated exposure control, adjustment of mA and/or KV based on patient size, or use of iterative reconstructive technique. FINDINGS: Right Kidney/Ureter: No stones. No hydronephrosis or hydroureter. No definite renal mass within the confines of a non-contrast exam. Left Kidney/Ureter: No stones. No hydronephrosis or hydroureter. No definite renal mass within the confines of a non-contrast exam. Abdominal Solid Organs: Abdominal parenchymal organs are without significant abnormality within the confines of a noncontrast exam. Bowel: No evidence of bowel obstruction. Appendix: Normal. Lymph Nodes: No definite pathologic lymphadenopathy. Fluid: No significant ascites. Vasculature: Normal caliber aorta. Pelvis: No bladder stones. Visualized pelvic organs are without significant abnormality within the confines of a noncontrast exam. Bones: No definite suspicious bony lesions demonstrated. Lower Chest: No significant lung base consolidation or effusion. IMPRESSION: 1. No urinary tract stones or obstruction. 2. There is no bowel obstruction. Appendix is normal. RADIA
[2019-02-12 22:39] VITALS: BP 112/77
[2019-02-12] MEDS ORDERED: HYDROcod/ACETAM 5/325 MG TABLET PO STA (23:16)
== END 2019-02-12 23:42 | disposition home or self-care (01) ==
LOC: EDUNIT# → ED 20:27
DX: R10.30 Lower abdominal pain, unspecified (principal); F17.200 Nicotine dependence, unspecified, uncomplicated
CPT/HCPCS: 36415; 74176; 80053; 81001; 81025; 83690; 85025; 96372; 99284; A9270; Q0162; 81003; 87086

== ENCOUNTER 2019-04-24 14:52 | Emergency (ER) | payer OTHER ==
[2019-04-24 14:59] VITALS: BP 138/82
--- NOTE | 2019-04-24 15:06 | ED Physician Documentation ---
History of Present Illness - Stated complaint Stated Complaint: FEMALE - Chief complaint Chief Complaint: General - History obtained from History obtained from: Patient (Recently had a sexual encounter with a new partner. Presents for STD testing. She has no symptoms, no pain or discharge. No lesions. 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 : None HEENT: None Psych: None Musculoskeletal: Other Derm: None - Past Surgical History Past Surgical History: Yes - Present Medications Home Medications: Ambulatory Orders Medication Instructions Recorded Confirmed Antibiotics 04/24/19 - Allergies Allergies/Adverse Reactions: Allergies Allergy/AdvReac Type Severity Reaction Status Date / Time No Known Drug Allergies Allergy Verified 04/24/19 14:58 - Social History Does the pt smoke?: Yes Smoking Status: Current some day smoker Does the pt drink ETOH?: Yes Does the pt have substance abuse?: No - Immunizations Immunizations are current?: Yes - POLST Patient has POLST: No PD ED PE NORMAL - Vitals Vital signs reviewed: Yes - General General: Alert and oriented X 3, No acute distress - Derm Derm: Normal color, Warm and dry, No rash - Neuro Neuro: Alert and oriented X 3 - Psych Psych: Normal mood, Normal affect Results - Vitals Vitals: Vital Signs - 24 hr 04/24/19 14:55 Temperature 36.4 C L Heart Rate 82 Respiratory 18 Rate Blood Pressure 138/82 H O2 Saturation 98 Oxygen O2 Source Room air PD MEDICAL DECISION MAKING - ED course ED course: She declined presumptive treatment for STDs wanting to wait for the results. Departure - Departure Disposition: 01 Home, Self Care Clinical Impression: Concern about STD in female without diagnosis Condition: Good Record reviewed to determine appropriate education?: Yes Instructions: STDs Reduce Risk Teen, STD Poss Comments: If your testing is positive we will call you. Return for new worsening symptoms. [place]
[2019-04-24 21:35] LABS: TRICHOMONAS VAGINALIS DNA NEGATIVE (NEGATIVE)
== END 2019-04-24 15:19 | disposition home or self-care (01) ==
LOC: ED 14:52
DX: Z11.3 Encounter for screening for infections with a predominantly sexual mode of transmission (principal); Z20.2 Contact with and (suspected) exposure to infections with a predominantly sexual mode of transmission; F17.200 Nicotine dependence, unspecified, uncomplicated
CPT/HCPCS: 87491; 87591; 87661; 99281; 99283